=== PATIENT | male | born 1965 | race Caucasian/White ===

== ENCOUNTER 2025-06-26 08:22 | Outpatient (CLI) | payer MEDICARE, MEDICAID ==
--- NOTE | 2025-06-26 09:59 | RADIOLOGY REPORT ---
EXAM: CT CT ABDOMEN PELVIS History: PERSONAL HISTORY OF URINARY CALCULI Comparison Study: None TECHNIQUE: Multidetector spiral CT of the abdomen was performed from lung bases to pubic symphysis. Imaging was performed without IV contrast. Axial, coronal and sagittal multiplanar reformats were obtained from the axial data set by the technologist. Radiation Dose : 1. Abdomen/Pelvis: CTDIvol 31.04 mGy, DLP 1537.9 mGy*cm. FINDINGS: Evaluation of solid organs is limited due to lack of intravenous contrast use. Lung Bases: No acute or significant lung base finding. Normal heart size. No pleural or pericardial effusion. Liver: The liver is normal in size. No focal lesions. Gallbladder and Biliary Tree: Unremarkable Spleen: Unremarkable Pancreas: The pancreas is grossly normal in appearance. Adrenal Glands: Unremarkable Kidneys: Nonobstructing left lower pole renal calculus measuring 5 mm. No hydronephrosis. Bladder: Grossly unremarkable for degree of distention. Bowel: The stomach is grossly normal in appearance. Small bowel and colon are normal in caliber and distribution. Normal appendix is visualized in the right lower quadrant without findings of appendicitis. Ascites: Absent Lymphadenopathy: No mesenteric, retroperitoneal or periportal lymphadenopathy. Abdominal Wall and Mesentery: Unremarkable. Vasculature: The visualized abdominal aorta is normal in size and caliber. Evaluation of abdominal and pelvic vessels is limited due to lack of intravenous contrast. Pelvic Organs: Unremarkable Musculoskeletal: No aggressive focal bony lesions, acute fractures or dislocation. Moderate to severe degenerative disc disease at L5-S1. IMPRESSION: Nonobstructing left lower pole renal calculus measuring 5 mm. No hydronephrosis. No other calculi. Radiation optimization: All CT scans at this facility use at least one of these dose optimization techniques: automated exposure control mA and/or kV adjustment per patient size (includes targeted exams where dose is matched to clinical indication) or iterative reconstruction.
== END 2025-06-26 23:59 | disposition home or self-care (01) ==
LOC: RAD 08:22
PROVIDERS: ATTEND Student in an Organized Health Care Education/Training Program
DX: N20.0 Calculus of kidney (principal); M51.379 Other intervertebral disc degeneration, lumbosacral region without mention of lumbar back pain or lower extremity pain; Z87.442 Personal history of urinary calculi
CPT/HCPCS: 74176